=== PATIENT | female | born 1940 | race Caucasian/White ===

== ENCOUNTER 2017-07-20 10:55 | Day surgery (SDC) | payer OTHER, MEDICAID ==
[2017-07-18 10:25] LABS: ANION GAP 4 (5-15); CALCIUM 9.8 mg/dL (8.4-11.0); CHLORIDE 103 mmol/L (98-107); CREATININE 0.85 mg/dL (0.55-1.30); GLUCOSE 90 mg/dL (70-99); POTASSIUM 3.5 mmol/L (3.5-5.1); SODIUM SERUM 140 mmol/L (136-145); UREA NITROGEN, BLOOD 22 mg/dL (8-21)
[2017-07-18 10:27] LABS: INR 1.1 (0.8-1.2); PROTHROMBIN TIME 11.5 SECS (9.5-12.5)
[2017-07-18 10:32] LABS: BASOPHILS % (AUTO) 0.7 % (0.0-2.0); EOSINOPHILS # (AUTO) 0.1 K/uL (0.0-0.4); EOSINOPHILS % (AUTO) 1.2 % (0.0-4.0); HEMATOCRIT 34.6 % (36-48); HEMOGLOBIN 11.5 g/dL (12.0-16.0); LYMPHOCYTES # (AUTO) 2.1 K/uL (1.0-5.5); LYMPHOCYTES % (AUTO) 42.5 % (20.5-51.5); MEAN CORPUSCULAR HEMOGLOBIN 30 pg (27-31); MEAN CORPUSCULAR HGB CONC 33 % (32-36); MEAN CORPUSCULAR VOLUME 91 fL (79.0-98.0); MONOCYTES # (AUTO) 0.3 K/uL (0.0-1.0); MONOCYTES % (AUTO) 5.9 % (1.7-9.3); NEUTROPHILS # (AUTO) 2.4 K/uL (1.8-7.7); NEUTROPHILS % (AUTO) 49.7 % (40.0-70.0); PLATELET COUNT (AUTO) 183 K/uL (130-430); RED BLOOD CELL COUNT(AUTO) 3.82 MIL/uL (4.2-6.2); RED CELL DISTRIBUTION WIDTH 14.2 % (9.0-15.0); WHITE BLOOD COUNT (AUTO) 4.9 K/uL (4.8-10.8)
[2017-07-18 10:46] LABS: BILIRUBIN,URINE NEGATIVE (NEGATIVE); BLOOD, URINE NEGATIVE (NEGATIVE); CLARITY/URINE CLEAR (CLEAR); COLOR,URINE YELLOW (YELLOW); GLUCOSE,URINE NEGATIVE (NEGATIVE); KETONES,URINE NEGATIVE (NEGATIVE); LEUKOCYTE ESTERASE ,URINE TRACE (NEGATIVE); NITRITE, URINE NEGATIVE (NEGATIVE); PH,URINE 6.5 (5.0-8.0); PROTEIN URINE NEGATIVE (NEGATIVE); UROBILINOGEN,URINE 0.2 (0.2-1.0)
[2017-07-18 10:47] LABS: BACTERIA,URINE FEW /HPF (None Seen); RBC,URINE 0-3 /HPF (0-3); WBC,URINE 0-3 /HPF (0-3)
[~2017-07-20] VITALS: Ht 154.9 cm; Wt 73.0 kg
[2017-07-20] MEDS ORDERED: KETAMINE HCL 500 MG/10 ML VIAL ONE (12:43)
[2017-07-20] MEDS ORDERED: LABETALOL 100 MG/ 20ML VIAL IVP ONE (12:59)
[2017-07-20] MEDS ORDERED: NS IRRIG SOLN 1000 ML IR ONE (12:59)
[2017-07-20] MEDS ORDERED: KETAMINE HCL 500 MG/10 ML VIAL IVP ONE (12:59)
[2017-07-20] MEDS ORDERED: MIDAZOLAM HCL 5 MG/5 ML VIAL IVP ONE (12:59)
[2017-07-20] MEDS ORDERED: LIDOCAINE/EPI 2% 1:100000 20 ML VIAL INJ ONE (12:59)
[2017-07-20] MEDS ORDERED: LR 1,000 ML IV ONE (13:56)
[2017-07-20] MEDS ORDERED: ePHEDrine sulfate 50 MG/ML VIAL IVP PRN (14:00)
[2017-07-20] MEDS ORDERED: ONDANSETRON HCL 4 MG/2 ML VIAL IVP PRN ×2 (14:00)
[2017-07-20] MEDS ORDERED: DIPHENHYDRAMINE INJ 50 MG/ML VIAL IVP PRN (14:00)
[2017-07-20 14:28] VITALS: BP_SYST 152
== END 2017-07-20 15:00 | disposition home or self-care (01) ==
LOC: SMU 10:55 → SDS 10:55
PROVIDERS: ATTEND Orthopaedic Surgery
DX: M67.432 Ganglion, left wrist (principal); Z90.710 Acquired absence of both cervix and uterus; Z90.49 Acquired absence of other specified parts of digestive tract; Z79.899 Other long term (current) drug therapy; J44.9 Chronic obstructive pulmonary disease, unspecified; I21.3 ST elevation (STEMI) myocardial infarction of unspecified site; Z88.8 Allergy status to other drugs, medicaments and biological substances; K21.9 Gastro-esophageal reflux disease without esophagitis; I10 Essential (primary) hypertension
CPT/HCPCS: 25111; 36415; 71020; 80048; 81000; 85025; 85610; 85730; 88304; 93005; J2250; J3490; J7120

== ENCOUNTER 2022-10-28 09:03 | Inpatient (IN) | payer OTHER, MEDICAID ==
[~2022-10-28] VITALS: Ht 152.4 cm; Wt 73.0 kg
[2022-10-28 09:03] VITALS: BP_SYST 212
--- NOTE | 2022-10-28 09:03 | NUR ---
BROUGHT IN BY [facility], PLACED IN BED #[address] DIMAS AT BEDSIDE UPON ARRIVAL. REPORT GIVEN TO ERASTO
--- NOTE | 2022-10-28 09:05 | NUR ---
PT BIBA AWAKE AND ALERT AOX4, NO SOB OR DISTRESS. PT C/O GENERALIZED WEAKNESS W HYPERTENSION. PT ALSO STATED THAT WHEN SHE WOKE UP SHE HAD SLURRED SPEECH WHEN SHE CALED HER DAUGHTER.
--- NOTE | 2022-10-28 09:05 | NUR ---
MD DR DIMAS AT BEDSIDE
--- NOTE | 2022-10-28 09:06 | NUR ---
CODE STROKE CALLED
--- NOTE | 2022-10-28 09:07 | NUR ---
PT TAKEN TO CT
--- NOTE | 2022-10-28 09:23 | NUR ---
TELE NEURO REQUESTED ORDERED BY DR. DIMAS
--- NOTE | 2022-10-28 09:30 | NUR ---
CXR AT BEDSIDE
--- NOTE | 2022-10-28 09:30 | NUR ---
COVID SWAB OBTAINED AND GIVEN TO MEDICAL LABORATORY TECHNICAL OFFICER MIRTHA
[2022-10-28 09:48] LABS: BASOPHILS % (AUTO) 0.9 % (0.0-2.0); EOSINOPHILS # (AUTO) 0.1 K/uL (0.0-0.4); EOSINOPHILS % (AUTO) 1.3 % (0.0-4.0); HEMATOCRIT 38.8 % (36-48); LYMPHOCYTES # (AUTO) 1.3 K/uL (1.0-5.5); LYMPHOCYTES % (AUTO) 29.9 % (20.5-51.5); MEAN CORPUSCULAR HEMOGLOBIN 33 pg (27-31); MEAN CORPUSCULAR HGB CONC 34 % (32-36); MEAN CORPUSCULAR VOLUME 97 fL (79.0-98.0); MONOCYTES # (AUTO) 0.3 K/uL (0.0-1.0); MONOCYTES % (AUTO) 7.9 % (1.7-9.3); NEUTROPHILS # (AUTO) 2.6 K/uL (1.8-7.7); PLATELET COUNT (AUTO) 186 K/uL (130-430); RED BLOOD CELL COUNT(AUTO) 4.01 MIL/uL (4.2-6.2); RED CELL DISTRIBUTION WIDTH 12.6 % (9.0-15.0); WHITE BLOOD COUNT (AUTO) 4.4 K/uL (4.8-10.8)
[2022-10-28 09:58] LABS: ANION GAP 9 (5-15); CALCIUM 10.3 mg/dL (8.4-11.0); CHLORIDE 107 mmol/L (98-107); CREATININE 0.76 mg/dL (0.55-1.30); GLUCOSE 108 mg/dL (70-99); UREA NITROGEN, BLOOD 25 mg/dL (8-21)
[2022-10-28 09:59] LABS: BILIRUBIN,URINE NEGATIVE (NEGATIVE); BLOOD, URINE NEGATIVE (NEGATIVE); CLARITY/URINE CLEAR (CLEAR); COLOR,URINE YELLOW (YELLOW); GLUCOSE,URINE NEGATIVE (NEGATIVE); KETONES,URINE NEGATIVE (NEGATIVE); LEUKOCYTE ESTERASE ,URINE NEGATIVE (NEGATIVE); NITRITE, URINE NEGATIVE (NEGATIVE); PH,URINE 5.5 (5.0-8.0); PROTEIN URINE NEGATIVE (NEGATIVE); UROBILINOGEN,URINE 0.2 (0.2-1.0)
[2022-10-28 10:05] LABS: ALANINE AMINOTRANSFERASE 13 U/L (12-78); ALBUMIN 4.3 g/dL (3.4-4.8); ASPARTATE AMINOTRANSFERASE 22 U/L (10-37); TOTAL BILIRUBIN 0.7 mg/dL (0.0-1.0)
[2022-10-28 10:09] LABS: PROTHROMBIN TIME 10.4 SECS (9.5-12.5)
[2022-10-28 10:19] LABS: BARBITURATE, URINE NEGATIVE (NEG <=200); BENZODIAZEPINE, URINE POSITIVE (NEG <=150); CANNABINOID, URINE NEGATIVE (NEG <=50); COCAINE, URINE NEGATIVE (NEG <=150); METHAMPHETAMINES SCREEN,URINE NEGATIVE (NEG <=500); OPIATE, URINE NEGATIVE (NEG <=100); PHENCYCLIDINE SCREEN,URINE NEGATIVE (NEG <=25); UR TRICYCLIC ANTIDEPRESSANTS NEGATIVE (NEG <=300); URINE AMPHETAMINE NEGATIVE (NEG <=500); URINE METHADONE NEGATIVE (NEG <=200); URINE OXYCODONE SCREEN NEGATIVE (NEG <=100); URINE PROPOXYPHENE SCREEN NEGATIVE (NEG <=300)
[2022-10-28] MEDS ORDERED: hydrALAZINE HCL 20 MG/ML VIAL IVP ONE (10:30)
[2022-10-28] MEDS ORDERED: iohexoL 350 mgI/mL, 100 ML INFUS..BTL IV ONE (11:06)
[2022-10-28] MEDS ORDERED: HYDR-3927 PO (11:15)
[2022-10-28] MEDS ORDERED: DICL20GE (11:15)
[2022-10-28] MEDS ORDERED: LIDOINT TP (11:15)
[2022-10-28] MEDS ORDERED: ALPR0.5T8 (11:44)
[2022-10-28] MEDS ORDERED: CYM30 PO (11:44)
[2022-10-28] MEDS ORDERED: ATRMDI INH (11:44)
[2022-10-28] MEDS ORDERED: FERR210T PO (11:44)
[2022-10-28] MEDS ORDERED: CARI350T27 PO (11:44)
[2022-10-28] MEDS ORDERED: MELO-89 PO (11:44)
[2022-10-28] MEDS ORDERED: FLUT12AE5 IH (11:44)
[2022-10-28] MEDS ORDERED: ESOM40CA PO (11:44)
[2022-10-28] MEDS ORDERED: RESEYE OP (11:44)
[2022-10-28] MEDS ORDERED: RIFA550T5 PO (11:44)
[2022-10-28] MEDS ORDERED: AMLO10TA88 PO (11:44)
[2022-10-28] MEDS ORDERED: LEVO125T8 PO (11:44)
[2022-10-28] MEDS ORDERED: VALS160T2 PO (11:44)
[2022-10-28] MEDS ORDERED: IMI50 PO (11:44)
[2022-10-28] MEDS ORDERED: METH1POW38 MC (11:44)
[2022-10-28] MEDS ORDERED: TOP25 PO (11:44)
[2022-10-28] MEDS ORDERED: MAGN240P PO (11:44)
--- NOTE | 2022-10-28 14:14 | NUR ---
Admit bed requested Patient will be admitted to care of . Admitted to TELE unit. Diagnosis TIA Inpatient (Yes or No) YES Observation (Yes or No) NO Orientation concerns or request close to nursing station (Yes or No) NO Covid Status NEG On vent or bipap NO Isolation requirements NO Needs a sitter NO From Home (Yes or if No enter name of facility) HOME Requires Dialysis (Yes or No) NO Med Rec Completed (Yes of No) YES
--- NOTE | 2022-10-28 15:59 | NUR ---
Patient will be admitted to care of [facility]. Admitted to TELE unit. Will go to room 105B. Belongings list completed. Complete and up to date summary report printed. SBAR report to be given at bedside with opportunity for questions.
[2022-10-28 16:06] VITALS: BP_SYST 133
[2022-10-28 16:10] VITALS: BP_SYST 133
[2022-10-28] MEDS ORDERED: DOCUSATE SODIUM 100 MG CAPSULE PO PRN (16:15)
[2022-10-28] MEDS ORDERED: POTASSIUM CHLORIDE 20 MEQ TAB.PRT.SR PO PRN (16:15)
[2022-10-28] MEDS ORDERED: MAGNESIUM SULFATE 50 ML IV PRN (16:15)
[2022-10-28] MEDS ORDERED: ONDANSETRON HCL 4 MG/2 ML VIAL IVP PRN (16:15)
[2022-10-28] MEDS ORDERED: IPRATROPIUM/ALBUTEROL SULFATE 3 ML AMPUL.NEB (DUONEB) INH PRN (16:15)
[2022-10-28] MEDS ORDERED: LORazepam 2 MG/ML VIAL IVP PRN (16:15)
[2022-10-28] MEDS ORDERED: ZOLPIDEM TARTRATE 5 MG TABLET PO PRN (16:15)
[2022-10-28] MEDS ORDERED: ACETAMINOPHEN 325 MG TABLET PO PRN (16:15)
[2022-10-28] MEDS ORDERED: MUPIROCIN 2% TOPICAL OINTMENT 22 GM NS PRN (16:15)
[2022-10-28 16:45] VITALS: BP_SYST 133
[2022-10-28] MEDS ORDERED: ENOXAPARIN SODIUM 30 MG/0.3 ML SYRINGE SUBCUT ONE (16:45)
[2022-10-28] MEDS: HYDROcodone/ACETAMIN 10-325 MG TAB PO PRN (18:30)
[2022-10-28 20:00] VITALS: BP_SYST 179
[2022-10-29] MEDS: cycloSPORINE 0.05%, 0.4 ML OPHTHALMIC EMULSION DROPERETTE OP SCH ×3 (00:33→21:56)
[2022-10-29] MEDS: HYDROcodone/ACETAMIN 10-325 MG TAB PO PRN ×2 (00:33→16:33)
[2022-10-29 01:12] VITALS: BP_SYST 153
[2022-10-29] MEDS: LEVOTHYROXINE SODIUM 0.125 MG TABLET PO SCH (08:19)
--- NOTE | 2022-10-29 08:34 | NUR ---
Dr. Delcid made aware of patient pain pump.
[2022-10-29] MEDS: LOSARTAN POTASSIUM 50 MG TABLET (COZAAR) PO SCH (08:59)
[2022-10-29] MEDS: TOPIRAMATE 25 MG TABLET(TOPAMAX) PO SCH (08:59)
--- NOTE | 2022-10-29 08:59 | NUR ---
CONSULTATION PAGED/CALLED Reason for Consultation: TIA Person Who was Notified: DR FOSTER Consulting Physician: INO FOSTER Ordering Physician: HANNAH RANGEL
[2022-10-29] MEDS: carisoprodoL 350 MG TABLET PO SCH (09:00)
[2022-10-29] MEDS ORDERED: ASPIRIN 81 MG TABLET(ECOTRIN) PO SCH (09:00)
[2022-10-29] MEDS ORDERED: VALSARTAN 160 MG TABLET (DIOVAN) PO SCH (09:00)
[2022-10-29] MEDS: amLODIPine BESYLATE 10 MG TABLET PO SCH (09:01)
[2022-10-29] MEDS: DULoxetine HCL 30 MG CAPSULE.DR (CYMBALTA) PO SCH (09:01)
[2022-10-29] MEDS ORDERED: ENOXAPARIN SODIUM 40 MG/0.4 ML SYRINGE ONE (09:15)
[2022-10-29] MEDS: ENOXAPARIN SODIUM 30 MG/0.3 ML SYRINGE SUBCUT SCH (09:18)
[2022-10-29 11:27] VITALS: BP_SYST 91
--- NOTE | 2022-10-29 13:15 | NUR ---
CM: faxed HH/PT attn Terri/[facility] tel # [phone], fax # [phone], pending PT eval note. Nursing please fax the report to Terri once available. Per dr. Delcid, plans to dc pt after PT.
--- NOTE | 2022-10-29 13:49 | NUR ---
straight in/out cath 300 ml out. lamberto, nurse present to help
[2022-10-29 14:38] LABS: BILIRUBIN,URINE NEGATIVE (NEGATIVE); BLOOD, URINE NEGATIVE (NEGATIVE); CLARITY/URINE SL CLOUDY (CLEAR); COLOR,URINE YELLOW (YELLOW); GLUCOSE,URINE NEGATIVE (NEGATIVE); KETONES,URINE NEGATIVE (NEGATIVE); LEUKOCYTE ESTERASE ,URINE 1+ (NEGATIVE); NITRITE, URINE NEGATIVE (NEGATIVE); PROTEIN URINE NEGATIVE (NEGATIVE); UROBILINOGEN,URINE 0.2 (0.2-1.0)
[2022-10-29 15:20] VITALS: BP_SYST 95
[2022-10-29 16:25] LABS: BACTERIA,URINE MODERATE /HPF (None Seen); RBC,URINE 0-3 /HPF (0-3)
[2022-10-29 20:00] VITALS: BP_SYST 97
--- NOTE | 2022-10-29 22:39 | NUR ---
Report given to OLIVIA Alonso for continuity of care. Patient stable.
[2022-10-30 00:02] VITALS: BP_SYST 96
[2022-10-30] MEDS: LEVOTHYROXINE SODIUM 0.125 MG TABLET PO SCH (06:04)
[2022-10-30 08:00] VITALS: BP_SYST 120
[2022-10-30] MEDS ORDERED: CLOP75TA32 PO (08:09)
[2022-10-30] MEDS ORDERED: ASPI-1393 PO (08:11)
[2022-10-30] MEDS ORDERED: LIP40 PO (08:11)
[2022-10-30] MEDS ORDERED: CLOPIDOGREL BISULFATE 75 MG TABLET PO SCH (09:00)
[2022-10-30] MEDS: carisoprodoL 350 MG TABLET PO SCH ×2 (09:00→09:19)
[2022-10-30] MEDS: LOSARTAN POTASSIUM 50 MG TABLET (COZAAR) PO SCH (09:19)
[2022-10-30] MEDS: DULoxetine HCL 30 MG CAPSULE.DR (CYMBALTA) PO SCH (09:19)
[2022-10-30] MEDS: TOPIRAMATE 25 MG TABLET(TOPAMAX) PO SCH (09:19)
[2022-10-30] MEDS: amLODIPine BESYLATE 10 MG TABLET PO SCH (09:19)
[2022-10-30] MEDS: ENOXAPARIN SODIUM 30 MG/0.3 ML SYRINGE SUBCUT SCH (09:19)
[2022-10-30] MEDS: cycloSPORINE 0.05%, 0.4 ML OPHTHALMIC EMULSION DROPERETTE OP SCH (09:20)
[2022-10-30 09:47] VITALS: BP_SYST 120
--- NOTE | 2022-10-30 10:18 | NUR ---
Patient ready for discharge. All paperwork and education provided. Patient changed into regular clothes and ambulatory with steady gait. Patient able to walk from bed to wheelchair and then escorted to personal vehicle where patient's daughter is able to pick patient up. Patient's vital signs stable and patient is alert and oriented to be able to go home. No distress noted.
== END 2022-10-30 10:30 | disposition home health service (06) | DRG 69 ==
LOC: SED 09:03 → STU 14:12
PROVIDERS: ADMIT General Practice; ATTEND General Practice
DX: G45.9 Transient cerebral ischemic attack, unspecified (principal); I16.0 Hypertensive urgency; G90.8 Other disorders of autonomic nervous system; I10 Essential (primary) hypertension; G89.29 Other chronic pain; R26.81 Unsteadiness on feet; E03.9 Hypothyroidism, unspecified; F32.A Depression, unspecified; F41.9 Anxiety disorder, unspecified; G43.909 Migraine, unspecified, not intractable, without status migrainosus; Z20.822 Contact with and (suspected) exposure to COVID-19; K21.9 Gastro-esophageal reflux disease without esophagitis; D64.9 Anemia, unspecified; J44.9 Chronic obstructive pulmonary disease, unspecified; Z86.73 Personal history of transient ischemic attack (TIA), and cerebral infarction without residual deficits; Z88.5 Allergy status to narcotic agent; Z88.8 Allergy status to other drugs, medicaments and biological substances; Z91.040 Latex allergy status
CPT/HCPCS: 36415; 70450-TC; 70496; 70498; 71045; 76376; 80053; 80307; 81000; 81003; 84484; 85025; 85610-TC; 85730-TC; 86886; 86900; 86901; 87086; 93005; 94760; 96374; 97116-GP; 97530-GP; 99285; G0378; J0360; J1650; J2060; Q9967